=== PATIENT | male | born 1980 | race American Indian/Alaskan Native ===

== ENCOUNTER 2019-09-01 20:33 | Emergency (ER) | payer SELFPAY ==
[2019-09-01 23:48] VITALS: BP 137/102
== END 2019-09-02 01:50 | disposition left against medical advice (07) ==
LOC: ED 20:33
DX: K08.89 Other specified disorders of teeth and supporting structures (principal); Z53.21 Procedure and treatment not carried out due to patient leaving prior to being seen by health care provider